=== PATIENT | female | born 1995 | race Asian ===

== ENCOUNTER 2018-03-27 22:12 | Inpatient (IN) | payer BC ==
[~2018-03-27] VITALS: Ht 172.7 cm; Wt 104.5 kg
[2018-03-27 22:18] VITALS: Ht 172.7 cm; Wt 104.5 kg
[2018-03-27 23:20] LABS: UA SPECIFIC GRAVITY <=1.005 (1.005-1.035); microscopic required? YES; urine erythrocyte 2+ (NEGATIVE)
[2018-03-27 23:24] LABS: CALCIUM 8.7 mg/dL (8.5-10.1); CARBON DIOXIDE 26.2 mmol/L (21-32); CHLORIDE SERUM 102 mmol/L (98-107); CREATININE SERUM 1.2 mg/dL (0.6-1.0); GFR1 > 60 mL/min; GLUCOSE SERUM 103 mg/dL (74-106); POTASSIUM SERUM 4.2 mmol/L (3.5-5.1); SODIUM SERUM 134 mmol/L (136-145)
[2018-03-27 23:29] LABS: BASOPHIL % 0.5 % (0-2); PLATELET COUNT 359 x10^3mcL (130-400); RED CELL DISTRIBUTION WIDTH 13.1 % (11.5-14.5)
[2018-03-27 23:33] LABS: ALBUMIN 3.6 g/dL (3.4-5.0); ALKALINE PHOSPHATASE 103 U/L (46-116); ALT/SGPT 42 U/L (14-59); AST/SGOT 21 U/L (15-37); BILIRUBIN TOTAL 0.58 mg/dL (0.20-1.00); TOTAL PROTEIN, SERUM 7.5 g/dL (6.4-8.2)
[2018-03-28 00:41] VITALS: BP 138/76
[2018-03-28 01:12] LABS: CHOLESTEROL/HDL RATIO 3.8; MAGNESIUM 1.9 mg/dL (1.8-2.4); PHOSPHOROUS 3.4 mg/dL (2.5-4.9)
[2018-03-28 01:15] LABS: T3 TOTAL 0.87 ng/mL
[2018-03-28 01:43] LABS: FREE T4 1.09 ng/dL (0.76-1.46); FREE THYROXINE INDEX 2.9 ug/dL (1.4-4.5); T4(THYROXINE) 8.5 ug/dL (4.7-13.3)
[2018-03-28 02:42] LABS: AMPHETAMINE QUAL UR NONE DETECTED (NEG <=1000)
[2018-03-28 05:10] VITALS: BP 131/65
[2018-03-28 07:18] LABS: PLATELET COUNT 359 x10^3mcL (130-400); RED CELL DISTRIBUTION WIDTH 12.9 % (11.5-14.5)
[2018-03-28 08:04] LABS: CALCIUM 8.6 mg/dL (8.5-10.1); CARBON DIOXIDE 25.4 mmol/L (21-32); CHLORIDE SERUM 105 mmol/L (98-107); GFR1 > 60 mL/min; GLUCOSE SERUM 117 mg/dL (74-106); MAGNESIUM 1.8 mg/dL (1.8-2.4); POTASSIUM SERUM 3.6 mmol/L (3.5-5.1); SODIUM SERUM 138 mmol/L (136-145)
[2018-03-28 08:41] LABS: BAND NEUTROPHIL 6 % (0-10); MONOCYTE 4 % (0-7); SEGMENTED NEUTROPHILS 85 % (37-75); rbc morphology (normal/abnorm) NORMAL (NORMAL)
[2018-03-28 10:00] VITALS: BP 111/63
[2018-03-28 13:51] VITALS: BP 101/65
[2018-03-28 17:10] VITALS: BP 118/65
[2018-03-28] MEDS ORDERED: KETOROLAC TR15 MG/M1 IV (18:00)
[2018-03-28] MEDS ORDERED: ZOS3PM IV (18:00)
[2018-03-28] MEDS ORDERED: FLO4 PO (18:00)
[2018-03-28] MEDS ORDERED: LAC PO (18:01)
[2018-03-28] MEDS ORDERED: TYL325 PO (18:01)
[2018-03-28] MEDS ORDERED: COL100 PO (18:01)
[2018-03-28 18:06] VITALS: BP 118/65
== END 2018-03-28 19:47 | disposition short-term general hospital (02) | DRG 871 ==
LOC: ED 22:12 → DU 03-28 00:04 → MU 03-28 16:03
PROVIDERS: Emergency Medicine; Family Medicine
DX: A41.9 Sepsis, unspecified organism (principal); N17.0 Acute kidney failure with tubular necrosis; N39.0 Urinary tract infection, site not specified; E87.1 Hypo-osmolality and hyponatremia; N13.6 Pyonephrosis; E66.9 Obesity, unspecified; R31.9 Hematuria, unspecified; D47.3 Essential (hemorrhagic) thrombocythemia; Z68.35 Body mass index [BMI] 35.0-35.9, adult
CPT/HCPCS: 83880; 84439; J0696; J1885; J2405; J2543; J7030; Q0092